=== PATIENT | female | born 2000 | race Two or more races ===

== ENCOUNTER 2020-04-28 16:27 | Emergency (ER) | payer SELFPAY ==
--- NOTE | 2020-04-28 17:01 | NUR ---
[employer]: AFTER DISCUSSING ED PROCESS W/ PT AND LACK OF SYMPTOMS. PT DECIDED TO LEAVE BEFORE BEING EVALUATED STATING THAT SHE WILL FOLLOW UP W/ OUTPATIENT TEST. PT CHRISTIANOS, MOSHE. AMBULATORY W/ A STEADY GAIT.
== END 2020-04-28 17:06 | disposition left against medical advice (07) ==
LOC: ED 16:54
DX: N91.2 Amenorrhea, unspecified (principal); R10.9 Unspecified abdominal pain
CPT/HCPCS: 99281